=== PATIENT | male | born 1950 | race Two or more races ===

== ENCOUNTER 2020-04-08 07:08 | Day surgery (SDC) | payer OTHER ==
[~2020-04-08] VITALS: Ht 172.7 cm; Wt 102.1 kg
[~2020-04-08 07:08] MED LIST: ADALAT20 MG ORAL; FINASTERIDE5 MG ORAL; LINZESS290 MCG PO; LIPITOR80 MG ORAL; LIQUID ANTACID355 ML PO; METOPROLOL SUCC50 MG ORAL; PANTOPRAZOLE SO40 MG ORAL; TERAZOSIN HCL5 MG PO; TRAMADOL HCL50 MG ORAL
--- NOTE | 2020-04-08 07:18 | Short Stay Surgery H&P ---
History of Present Illness History of Present Illness Chief Complaint Abdominal pains and GERDS HPI Van Resendiz is a 69 year old male who was admitted on for Abdominal Pain, Gerd Patient History Allergies: Coded Allergies: CIPROFLOXACIN (Verified Allergy, Unknown, Itching, 04/03/20) SULFA (SULFONAMIDE ANTIBIOTICS) (Verified Allergy, Unknown, Itching, 04/03/20) PAST MEDICAL HISTORY: (1) Hypertension (2) Diabetes (3) Hyperlipidemia (4) BPH (benign prostatic hyperplasia) (5) History of elbow surgery (6) History of surgery on wrist (7) History of appendectomy (8) Hypertension Medication History Scheduled Atorvastatin (Lipitor), 80 MG ORAL DAILY, (Reported) Finasteride (Finasteride), 5 MG ORAL DAILY, (Reported) Linaclotide (Linzess), 290 MCG PO DAILY, (Reported) Mag Hydrox/Al Hydrox/Simeth (Liquid Antacid Suspension), 355 ML PO DAILY, (Reported) Metoprolol Succinate* (Metoprolol Succinate*), 50 MG ORAL DAILY, (Reported) Nifedipine (Nifedipine*), 90 MG ORAL DAILY, (Reported) Pantoprazole* (Pantoprazole*), 20 MG ORAL DAILY, (Reported) Terazosin Hcl (Terazosin Hcl), 7 MG PO DAILY, (Reported) Scheduled PRN Tramadol Hcl* (Ultram*), 50 MG ORAL Q6H PRN for For Pain, (Reported) Review of Systems Cardiovascular: Reports: hypertension Respiratory: Reports: no symptoms Skeletal: Reports: trauma Gastrointestinal: Reports: gastro esophageal reflux disease Genitourinary: Reports: BPH Neurologic: Reports: no symptoms Endocrine: Reports: diabetes - type 2 Hematologic: Reports: no symptoms Physical Exam Skin: normal HENT: normal Heart: normal Lungs: normal Abdomen: abnormal Extremities: normal Genitourinary: normal Plan Plan of Care Upper GI. endoscopy and biopsy Preop Interventions None. Summary of Findings See the reports Attestation Are the patient's medical conditions optimized for surgery? Attestation Response: yes Elham Masters MD Apr 08, 2020 07:18
--- NOTE | 2020-04-08 07:19 | Pre-Procedure Note/Attestation ---
Pre-Procedure Note/Attestation Complete Prior to Procedure Planned Procedure: left Procedure Narrative: Examination of the upper GI tract via endoscopy with obtaining biopsy Indications for Procedure Pre-Operative Diagnosis: R/o Peptic ulcer/gastritis/esophagitis. Attestation I attest that I discussed the nature of the procedure; its benefits; risks and complications; and alternatives (and the risks and benefits of such alternatives), prior to the procedure, with the patient (or the patient's legal technical support representative). I attest that, if there was a reasonable possibility of needing a blood transfusion, the patient (or the patient's legal technical support representative) was given the [facility] standardized written summary, pursuant to the Erasmo [employer] Eduardo Blood Safety Act ([place] Health and Safety Code # 1645, as amended). I attest that I re-evaluated the patient just prior to the surgery and that there has been no change in the patient's H&P, except as documented below: Elham Masters MD Apr 08, 2020 07:19
--- NOTE | 2020-04-08 07:19 | Pre-Procedure Note/Attestation ---
Pre-Procedure Note/Attestation Complete Prior to Procedure Planned Procedure: left Procedure Narrative: Examination of the upper GI tract via endoscopy. Indications for Procedure Pre-Operative Diagnosis: R/o Peptic ulcer/gastritis/esophagitis. Attestation I attest that I discussed the nature of the procedure; its benefits; risks and complications; and alternatives (and the risks and benefits of such alternatives), prior to the procedure, with the patient (or the patient's legal admitting representative). I attest that, if there was a reasonable possibility of needing a blood transfusion, the patient (or the patient's legal admitting representative) was given the [place] [facility] standardized written summary, pursuant to the Erasmo Carlos Eduardo Blood Safety Act ([place] Health and Safety Code # 1645, as amended). I attest that I re-evaluated the patient just prior to the surgery and that ther e has been no change in the patient's H&P, except as documented below: Elham Masters MD Apr 08, 2020 07:19
--- NOTE | 2020-04-08 07:20 | Discharge Instructions ---
Discharge Instructions Discharge Instructions Follow up with: Make appointment to see the doctor after 2 weeks For Congestive Heart Failure Reminder Report to your physician any weight gain of 5 pounds or more in one week. Elham Masters MD Apr 08, 2020 07:20
[2020-04-08 07:33] VITALS: BP 137/98
--- NOTE | 2020-04-08 07:38 | Anethesia Preoperative Eval ---
Anesthesia Pre-op PMH/ROS General Date of Evaluation: Apr 08, 2020 Time of Evaluation: 07:34 Anesthesiologist: alli ASA Score: ASA 3 Mallampati Score Class I : Soft palate, uvula, fauces, pillars visible Class II: Soft palate, uvula, fauces visible Class III: Soft palate, base of uvula visible Class IV: Only hard plate visible Mallampati Classification: Class II Surgeon: rajat Diagnosis: abdominal pain, gerd Surgical Procedure: egd Anesthesia History: none Social History: smoking - former smoker Family History: no anesthesia problems Allergies: Coded Allergies: CIPROFLOXACIN (Verified Allergy, Unknown, Itching, 04/03/20) SULFA (SULFONAMIDE ANTIBIOTICS) (Verified Allergy, Unknown, Itching, 04/03/20) Medications: see eMAR Patient NPO?: Yes Past Medical History Cardiovascular: Reports: HTN Gastrointestinal/Genitourinary: Reports: other - bph, Endocrine: Reports: DM Hematology/Immune: Reports: other - covid-19 nd 04/04/2020 Musculoskeletal/Integumentary: Reports: other - back pain Other: obesity PSxH Narrative: appendectomy, elbow surgery, vasectomy, wrist surgery Anesthesia Pre-op Phys. Exam Physician Exam Constitutional: NAD Neurologic: CN 2-12 intact Cardiovascular: RRR Respiratory: CTA Gastrointestinal: S/NT/ND Airway Exam Mallampati Score: Class II MO: limited Neck: flexible TMD: 2fb ROM: limited Anesthesia Pre-op A/P Labs Microbiology Date/Time Source Procedure Growth Status 04/04/20 09:15 Nasopharynx Coronavirus COVID-19 PCR ([facility]) - Final Complete Risk Assessment & Plan Assessment: asa3 Plan: mac Status Change Before Surgery: No Pre-Antibiotics Drug: Lala Ballesteros MD Apr 08, 2020 07:38
[2020-04-08] MEDS ORDERED: DiphenhydrAMINE 50mg/ml Inj IVP PRN (07:45)
[2020-04-08] MEDS ORDERED: LR 1000ml 1,000 ML IVLG SCH (07:45)
[2020-04-08] MEDS ORDERED: Atropine Inj 1mg/10ml Syr IVP PRN (07:45)
[2020-04-08] MEDS ORDERED: fentaNYL 100 mcg/2 mL IV PRN (07:45)
[2020-04-08] MEDS ORDERED: Midazolam 2mg/2ml Inj IVP PRN (07:45)
[2020-04-08] MEDS ORDERED: LR 1000ml ONE ×2 (08:30→09:00)
[2020-04-08] MEDS ORDERED: Lidocaine 1% MPF 10mg/ml 5ml ONE (08:30)
--- NOTE | 2020-04-08 08:57 | Endoscopy Procedure Note ---
Endoscopy Procedure Note General Indication for Procedure: Abdominal pains/GERDs Procedures Performed: EGD - Erosions in pyloric channel with mild antral gastriis; biopsis obtained from pyloric channel and the antrum and gastric body. Specimen: yes Pt Tolerated Procedure Well: Yes Estimated Blood Loss: none Anesthesia Anesthesiologist: Dr. Vega Anesthesia: moderate sedation Medications Medication Given: see anesthesia record Inserted Devices Implant(s) used?: No Quality Quality of Bowel Preparation: Excellent Was there any complications?: No GI Core Measures 50 yrs or older w/o bx or poly: Not Applicable 10yrs. F/U recommended: Not Applicable If not recommended, why?: Med reason:<3 yrs.: System Reason:<3 yrs.: Elham Masters MD Apr 08, 2020 08:56
[2020-04-08 09:00] VITALS: BP 123/63
[2020-04-08] MEDS ORDERED: propofoL 1,000mg/100ml IV ONE (09:00)
[2020-04-08] MEDS ORDERED: Sterile Water Irrig 1000ml IRRIG ONE (09:00)
[2020-04-08] MEDS ORDERED: Succinylcholine 20mg/ml 10ml vial ONE (09:00)
[2020-04-08] MEDS ORDERED: NS Irrig 1000ml ONE (09:00)
[2020-04-08] MEDS ORDERED: Rocuronium Bromide 50mg/5ml Inj IV ONE (09:00)
[2020-04-08] MEDS ORDERED: D5NS 1000ml IV ONE (09:00)
[2020-04-08 09:05] VITALS: BP 131/60
[2020-04-08 09:10] VITALS: BP 131/63
[2020-04-08 09:15] VITALS: BP 120/63
--- NOTE | 2020-04-08 09:16 | Immediate Post-Op Evaluation ---
Immediate Post-Op Evalulation Immediate Post-Op Evalulation Procedure: egd w/bx Date of Evaluation: Apr 08, 2020 Time of Evaluation: 09:12 IV Fluids: 400ml lr Blood Products: none Estimated Blood Loss: negligible Blood Pressure Systolic: 123 Blood Pressure Diastolic: 63 Pulse Rate: 62 Respiratory Rate: 18 O2 Sat by Pulse Oximetry: 100 Temperature (Fahrenheit): 97.4 Pain Score (1-10): 0 Nausea: No Vomiting: No Complications none Patient Status: awake, reacts, patent Hydration Status: adequate Drug: Lala Ballesteros MD Apr 08, 2020 09:16
--- NOTE | 2020-04-08 09:17 | 48 Hour Post Anesthesia Eval ---
Post Anesthesia Evaluation Procedure: egd w/bx Date of Evaluation: Apr 08, 2020 Time of Evaluation: 09:14 Lala Vega MD Apr 08, 2020 09:17
[2020-04-08 09:35] VITALS: BP 131/66
--- NOTE | 2020-04-08 09:44 | Operative Note - Dictated ---
DATE OF OPERATION: 04/08/2020 SURGEON: Elham Masters MD PROCEDURE: Esophagogastroduodenoscopy. PREOPERATIVE DIAGNOSES: Abdominal pain, rule out peptic ulcer disease, epigastric pain, NSAID-induced gastropathy. POSTOPERATIVE DIAGNOSES: 1. Multiple erosions over the prepyloric channel. 2. Mild antritis, otherwise normal upper GI endoscopy. Biopsy was taken from pyloric channel and antral area and gastric section. MEDICATION USED: Per Dr. Sullivan, anesthesiologist. INSTRUMENT: GIF Olympus upper GI video endoscope. DESCRIPTION OF PROCEDURE: Patient after arriving in the endoscopy unit, was told about risks and benefits of the procedure, which he accepted and signed informed consent. He was then put on the left lateral decubitus position and after adequate IV sedation, the scope was gently passed through the cricopharyngeal area, was lodged in the upper esophagus and was gradually advanced towards gastroesophageal junction. The entire length of the esophagus was completely normal and there was no evidence of any abnormalities in the esophagus. There were no tumors or polyps etc. At this time, the scope was advanced into the stomach and the GE junction was examined in a closer fashion and this area basically revealed also normal finding without any evidence of hiatal hernia or Robles's. Finally, the scope was pushed towards the band in the stomach. Gastric cavity was distended with insufflation of air and the areas of the fundus and the body and the antrum were examined. The only findings were mild inflammatory process in the antrum and multiple erosions, which were friable over the pyloric channel. As I mentioned, there was no ulcers in the gastric cavity itself or tumors or polyps. At this time, one random biopsy from gastric body and the other one from antrum and pyloric channel were obtained and subsequently scope was passed through the pylorus. First and second portion of duodenum were found to be completely normal. Finally, the scope was pulled out and the procedure was terminated. Patient tolerated the procedure well and left the endoscopy room in a good condition. Elham Masters M.D. DR: NISREEN JOB#: [id number] CC:
--- NOTE | 2020-04-08 10:44 | Pre-op HX & Phy Repo 2 SIG ---
DATE OF ADMISSION: 04/08/2020 HISTORY OF PRESENT ILLNESS: The patient is being seen prior to undergoing the procedure upper GI endoscopy for which he has been scheduled to receive for evaluation of his gastrointestinal symptoms that he has been suffering subsequent to his work injury. 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 While working with the patient, he had sustained an injury over his dorsolumbar area consistent with disc disease and subsequently he was started on multiple medications including nonsteroidal anti-inflammatory agents. At this time, the patient was seen in my office two months ago and reported to me that he has been experiencing pain over the upper part of his abdomen along with symptoms of heartburn. Therefore, he was scheduled to undergo the procedure for upper GI endoscopy, which is being done today. The patient reports that he still does have pain over the upper part of the abdomen along with symptoms of gastroesophageal acid reflux, which is aggravated by consumption of foods. He reports that occasionally this pains radiate towards his chest area as well. As I mentioned in the past, he has been taking multiple medications including naproxen and strong analgesics subsequent to his work injury, which required prescription of these medications. The patient was started on pantoprazole that seemingly still he has taking them. He denies having any difficulty swallowing such as dysphagia, odynophagia, etc. He occasionally does have constipation, but no diarrhea. There is occasional rectal bleeding of minimal amount. He denies any vomiting blood or passing bright red blood per stools. At this time, he also denies having any major other conditions such as chest pain or shortness of breath. However, reports to me that he has never undergone any upper or lower GI endoscopic examination receiving any x-rays in regards to his abdominal conditions that he has been complaining subsequent to having had injury at the work. PAST MEDICAL HISTORY: Basically significant for the conditions of high blood pressure, high cholesterol and diabetes as he has also had benign prostatic hyperplasia as well. PAST SURGICAL HISTORY: Also important because he has undergone surgeries for his elbows on both sides when he was young and also has had history of right wrist surgery in 2010 along with appendectomy in the past. ALLERGIES: To sulfa. FAMILY HISTORY: None significant. HABITS: He denies drinking alcohol or smoking cigarettes. REVIEW OF SYSTEMS: GENERAL: Basically history of present illness as he basically denies having any shortness of breath or cough or headaches. He also denies having any significant chest pain. He denies having any hematological problems such as anemia or excessive bleeding. MUSCULOSKELETAL: He only complains of pain over his dorsolumbar area, which was consistent with a disc disease and he reports that he was operated for it. GENITOURINARY: He mentions that he has had benign prostatic hypertrophy for which he is being treated adequately. ENDOCRINE: Also he suffers from diabetes mellitus, but no thyroid conditions. PHYSICAL EXAMINATION: GENERAL: At this time reveals alert, well-oriented gentleman, does not seem to be in any acute distress. He looks well developed and nourished and obese. VITAL SIGNS: Temperature 97.8, blood pressure 137/98, pulse 69 per minute, respirations 18 per minute, oxygen saturation on room air is 98%. HEENT: Normocephalic. Pupils equal in size and reactive to light and accommodation. No visible jaundice. Buccal cavity, tongue midline, well hydrated. NECK: Supple. No JVD, thyromegaly, or adenopathy. CHEST: Clear to auscultation and percussion. No rales or rhonchi. HEART: S1, S2 normal. Regular rhythm. No gallops or murmur. ABDOMEN: Soft, but quite obese. There is no rebound phenomena, but there is tenderness over the upper part of the abdomen. No organomegaly. RECTAL: Examination was deferred. NEUROLOGIC: Within normal limits. PSYCHOLOGIC: Within normal limits. PRELIMINARY PREOPERATIVE IMPRESSION: 1. Epigastric pain of uncertain etiology, rule out gastroesophageal acid reflux, aggravated by side effects of NSAID medications with underlying NSAID-induced gastropathy, gastritis, peptic ulcer disease, esophagitis. 2. Hypertension, hyperlipidemia, and diabetes mellitus. 3. Obesity. 4. History of bodily injury work related. RECOMMENDATIONS: At this time, the applicant seems to be stable to undergo the procedure of upper GI endoscopy for which he has been scheduled and he agrees to undergo it and signed the informed consent as he is stable. Said Shannon Masters DR: CHACHA JOB#: [id number] CC: Venu Abad MD.; Fax#: [phone]
== END 2020-04-08 09:45 | disposition home or self-care (01) ==
LOC: GAS 07:08
DX: K29.50 Unspecified chronic gastritis without bleeding (principal); K21.9 Gastro-esophageal reflux disease without esophagitis; I10 Essential (primary) hypertension; E11.9 Type 2 diabetes mellitus without complications; E78.5 Hyperlipidemia, unspecified; B96.81 Helicobacter pylori [H. pylori] as the cause of diseases classified elsewhere; Z90.89 Acquired absence of other organs; Z88.2 Allergy status to sulfonamides; Z88.8 Allergy status to other drugs, medicaments and biological substances; Z79.899 Other long term (current) drug therapy; E66.9 Obesity, unspecified; E78.00 Pure hypercholesterolemia, unspecified; Z68.34 Body mass index [BMI] 34.0-34.9, adult
CPT/HCPCS: 43239; 94003; J0330; J2704; J7120; U0004; 94150